=== PATIENT | male | born 1950 | race Caucasian/White ===

== ENCOUNTER 2017-03-23 11:48 | Emergency (ER) | payer MEDICAID, OTHER ==
[~2017-03-23] VITALS: Ht 157.5 cm; Wt 76.2 kg
[2017-03-23 12:10] VITALS: BP 131/71
== END 2017-03-23 14:13 | disposition home or self-care (01) ==
LOC: ER 11:50
DX: S62.101A Fracture of unspecified carpal bone, right wrist, initial encounter for closed fracture (principal); W18.30XA Fall on same level, unspecified, initial encounter; Y93.89 Activity, other specified; Y92.89 Other specified places as the place of occurrence of the external cause; Y99.8 Other external cause status
CPT/HCPCS: 29125; 73110; 99284; A4606; Z7610

== ENCOUNTER 2020-05-14 07:29 | Emergency (ER) | payer MEDICARE, OTHER ==
[~2020-05-14] VITALS: Ht 154.9 cm; Wt 72.6 kg
[2020-05-14 07:37] VITALS: BP 120/69
[2020-05-14] MEDS ORDERED: DOXY100C41 PO ×2 (07:42→07:56)
--- NOTE | 2020-05-14 07:58 | NUR ---
Patient discharged to home in stable condition. Written and verbal after care instructions given. Patient verbalizes understanding of instruction.
== END 2020-05-14 07:58 | disposition home or self-care (01) ==
LOC: ER 07:32
DX: L72.3 Sebaceous cyst (principal)